=== PATIENT | male | born 1955 | race Caucasian/White ===

== ENCOUNTER → 2017-01-29 | Outpatient (CLI) | payer BC ==
[~2017-01-29] VITALS: Ht 172.7 cm; Wt 100.6 kg
[~2017-01-29] MED LIST: ALEVE 220MG220 MG PO; ATENOLOL50 MG PO; BENZTROPINE1 MG PO; BUSPAR10 MG PO; COGENTIN .0.5 MG/TAB PO; COGENTIN 2MG2 MG/TA1 PO; GLUCOSAMINE & C1 CA1 PO; HALDOL 5MG T5 MG/TAB PO; HYZAAR 12.5 MG-1 TA1 PO; MULTIPLE VITAMI1 TAB PO; MVI PO; NAPROSYN500 MG PO; NORCO 325 MG-51 TAB PO; POTASSIUM '99'620 MG PO; TENORMIN 5050 MG/TAB PO; VITAMIN C500 MG PO; VITAMIN D31000 IU PO
[2017-01-29 13:40] VITALS: BP 128/82; PULSE 59
[2017-01-29 14:55] VITALS: BP 128/85; PULSE 59
== END ==
LOC: COL.RAD 09:00
DX: M71.38 Other bursal cyst, other site (principal); M48.061 Spinal stenosis, lumbar region without neurogenic claudication
CPT/HCPCS: J3301; Q9965

== ENCOUNTER → 2018-06-28 | Outpatient (CLI) | payer BC ==
[2005-09-08 10:20] VITALS: TEMP 97
== END ==
LOC: COL.RAD 16:07
DX: H53.2 Diplopia (principal)